=== PATIENT | female | born 1965 | race Caucasian/White ===

== ENCOUNTER 2018-08-30 21:57 | Emergency (ER) | payer OTHER ==
[~2018-08-30] VITALS: Ht 175.3 cm; Wt 80.9 kg
[2018-08-30 22:04] VITALS: BP 127/81; TEMP 99.1
[2018-08-31] MEDS ORDERED: NORCO 325 MG-51 TAB PO (00:19)
[2018-08-31] MEDS ORDERED: CRUTCHES MC (00:26)
[2018-08-31 00:30] VITALS: PULSE 80
== END 2018-08-31 00:30 | disposition home or self-care (01) ==
LOC: COL.ER 21:57
DX: S93.402A Sprain of unspecified ligament of left ankle, initial encounter (principal); W10.8XXA Fall (on) (from) other stairs and steps, initial encounter
CPT/HCPCS: Q4045

== ENCOUNTER 2018-12-06 17:00 | Outpatient (RCR) | payer OTHER ==
[~2018-12-06 17:00] MED LIST: CRUTCHES MC; NORCO 325 MG-51 TAB PO
== END 2019-02-16 ==
LOC: MKS.ESL.PT
DX: M25.572 Pain in left ankle and joints of left foot (principal)